=== PATIENT | female | born 1990 | race Caucasian/White ===

== ENCOUNTER 2016-10-16 19:31 | Outpatient (CLI) | payer BC, MEDICAID ==
[~2016-10-16 19:31] MED LIST: BAYER CHEWABLE81 MG PO; BUSPAR10 MG PO; PRENATAL COMPLE1 TAB PO
[2016-10-16 19:50] LABS: APPEARANCE HAZY (CLEAR); BACTERIA MODERATE /hpf (NONE SEEN); BILIRUBIN NEGATIVE (NEGATIVE); COLOR YELLOW (YELLOW); GLUCOSE NEGATIVE (NEGATIVE); KETONE NEGATIVE (NEGATIVE); LEUKOCYTE ESTERASE 1+ (NEGATIVE); MUCUS <1+ /lpf (NONE SEEN); NITRITE NEGATIVE (NEGATIVE); PROTEIN NEGATIVE (NEGATIVE); RED CELLS - URINE 0-5 /hpf (0-5); UROBILINOGEN NORMAL (NORMAL)
[2016-10-21 09:46] VITALS: BMI 47.9
== END 2016-10-16 20:32 | disposition home or self-care (01) ==
LOC: D.LDO 19:31
PROVIDERS: Specialist
DX: O26.893 Other specified pregnancy related conditions, third trimester (principal); Z3A.38 38 weeks gestation of pregnancy; R50.9 Fever, unspecified

== ENCOUNTER 2016-10-21 05:00 | Inpatient (IN) | payer BC, MEDICAID ==
[~2016-10-21] VITALS: Ht 156.2 cm; Wt 117.0 kg
[2016-10-21 05:36] VITALS: BP 133/78; BMI 48.0
[2016-10-21] MEDS ORDERED: MACROBID100 MG PO (06:03)
[2016-10-21 06:35] LABS: HEMATOCRIT 30.4 % (36.0-48.0); HEMOGLOBIN 9.9 g/dL (12-16); MCH 27.4 pg (26.0-34.0); MCHC 32.6 g/dL (31.0-37.0); MCV 84.2 fL (80.0-100.0); MEAN PLATELET VOLUME 9.1 fL (7.4-10.4); RBC 3.61 10x6/uL (4.00-5.40); RDW 16.6 % (11.5-14.5)
[2016-10-21 07:05] LABS: APPEARANCE HAZY (CLEAR); BACTERIA MODERATE /hpf (NONE SEEN); BILIRUBIN NEGATIVE (NEGATIVE); COLOR DK YELLOW (YELLOW); GLUCOSE NEGATIVE (NEGATIVE); KETONE SMALL mg/dL (NEGATIVE); LEUKOCYTE ESTERASE TRACE (NEGATIVE); MUCUS <1+ /lpf (NONE SEEN); NITRITE NEGATIVE (NEGATIVE); PROTEIN NEGATIVE (NEGATIVE); RED CELLS - URINE OCC /hpf (0-5); SPECIFIC GRAVITY 1.015 (1.005-1.020); UROBILINOGEN NORMAL (NORMAL); WHITE CELLS - URINE 0-5 /hpf (0-5)
--- NOTE | 2016-10-21 09:14 | NUR ---
FUNDUS FIRM BUT DEEP AT UMBILICUS WITH MINIMAL LOCIA
--- NOTE | 2016-10-21 09:14 | NUR ---
THE PATIENT HAD A SPINAL FOR HER PRCEEDURE BUT NOW REPORTS FULL SENSATION TO LOWER EXTS
[2016-10-21 09:28] VITALS: BP 133/68
--- NOTE | 2016-10-21 09:32 | NUR ---
UPON ENTRANCE TO FLOOR THE PATIENT STARTED SHAKING AND DEMEROL WAS ADMINISTERED PER ANESTHESIA ORDER
--- NOTE | 2016-10-21 09:33 | NUR ---
RECEIVED PATIENT TO ROOM 1257. SHE IS AWAKE AND ALERT. IVF INFUSING TO THE LEFT FOREARM PER ORDERS. RECOVERY NURSE ACCOMPANING HER; DEMEROL GIVEN BECAUSE SHE HAS THE JITTERS. SHE IS CURRENTLY CALM. ZOILA NEIL TALKING LOVINGLY TO HER ABOUT 'S CONDITION.
--- NOTE | 2016-10-21 09:45 | NUR ---
PATIENT SETTLED INTO HER BED. SHE DOESN'T HAVE ANY BLEEDING. F/F AT HER UMBILICUS. 75CC NOTED IN THE UROMETER, EMPTIED INTO COLLECTION BAG. ICE BAG TO HER INCISION THAT HAS A C/D/I DRESSING. DRIVER'S LICENSE REVIEWING OFFICER INITIATED AND INSTRUCTIONS GIVEN. SHE VOICES THEN DEMONSTRATED UNDERSTANDING.
[2016-10-21 09:46] VITALS: Ht 156.2 cm; Wt 117.0 kg
--- NOTE | 2016-10-21 10:15 | NUR ---
PATIENT RESTING QUIETLY WITHOUT COMPLAINTS. FUNDUS FIRM AND 1/U. NO BLEEDING. 60CC URINE WORKED DOWN THE TUBING TO THE UROMETER. FOB AND OTHER VISITORS STEPPED OUT OF THE ROOM FOR EXAM. SHE REMAINS NUMB BUT FEELS THE PRESSURE OF PALPATION. HER FUNDUS IS DEEP.
--- NOTE | 2016-10-21 11:15 | NUR ---
PATIENT'S SENSATION OF CRAMPING HAS BEGUN. Z OS MAINFRAME SYSTEMS PROGRAMMER IN USE. SHE RATES HER PAIN A 4. STILL NO LOCHIA. FUNDUS FIRM AT /U. SHE REQUESTS JELLO TO EAT AND IS INTERESTED IN REGULAR DIET SOON POSSIBLE.
--- NOTE | 2016-10-21 11:30 | NUR ---
PATIENT USED CALL LIGHT TO REQUEST THE TORADOL INJECTION WE HAD DISCUSSED FOR ADJUNCT PAIN CONTROL. IV TUBING SECURED TO THE FEFT FOREARM. THE IV INSERTION SITE IS WITHOUT S/S OF INFILTRATION OR IRRITATION. SCD'S ON AND INFLATING. DENIES OTHER NEEDS.
--- NOTE | 2016-10-21 12:00 | NUR ---
PATIENT RATED HER PAIN A 2.
--- NOTE | 2016-10-21 13:30 | NUR ---
PATIENT'S FUNDUS IS AT THE UMBIULICUS NOW. STILL WITHOUT BLEEDING. 100CC URINE OUT TO THE UROMETER SINCE 1114. SHE ENJOYED HER CLEAR LIQUID DIET AND DRANK 3 MUGS OF WATER. THERE IS NOTICIBLE BLOOD IN HER URINE AT THIS TIME WITH A FLOATING PIECE OF SEDEMENT NOTED.
--- NOTE | 2016-10-21 13:45 | NUR ---
L/D NURSE ASSESSED FUNDUS HEIGHT AND FIRMNESS. NOTED THE URINE. SHE AGREES THERE IS NO NEED TO WORRY AT THIS TIME. ICE PACK REPLACED TO THE INCISION.0
[2016-10-21 14:36] LABS: BASOPHILS 0.1 % (0.0-2.0); EOSINOPHILS 0.1 % (0-7); HEMATOCRIT 26.8 % (36.0-48.0); HEMOGLOBIN 8.9 g/dL (12-16); IMMATURE GRANULOCYTES 0.5 % (0-5); LYMPHOCYTES 11.1 % (15-50); MCH 28.3 pg (26.0-34.0); MCHC 33.2 g/dL (31.0-37.0); MCV 85.1 fL (80.0-100.0); MEAN PLATELET VOLUME 8.8 fL (7.4-10.4); MONOCYTES 6.6 % (2-11); NEUTROPHILS 81.6 % (40-80); RBC 3.15 10x6/uL (4.00-5.40); RDW 16.5 % (11.5-14.5)
--- NOTE | 2016-10-21 14:41 | NUR ---
PATIENT IS SITTING UP IN HER BED, PAIN RATED A 2. FOB HAS STEPPED OUT. OTHER RELATIVES IN THE ROOM. DRAWING TRACER IN USE. IVF INFUSING. NEW ICE BAG PLACED TO INCISION.
[2016-10-21 14:44] LABS: PLATELET COUNT 130 10x3/uL (130-400); WBC 14.2 10x3/uL (4.8-10.8)
--- NOTE | 2016-10-21 15:10 | NUR ---
PATIENT USED CALL LIGHT TO REPORT THAT HER IV TUBING WAS LEAKING. IT WAS LEAKING AT THE INTERSECTIONOF THE IVF AND TITLE INVESTIGATOR TUBING. REPLACED BOTH LINES. PATIENT STATES THAT SHE WOULD LIKE TO HAVE THE DEMEROL AGAIN WHEN AVAILABLE. HER URINE REMAINS PATENT TO THE BEDSIDE DRAINAGE. MANY FAMILY MEMBERS AT THE BEDSIDE.
--- NOTE | 2016-10-21 16:30 | NUR ---
PATIENT DENIES NEEDS. VISITING WITH FAMILY
--- NOTE | 2016-10-21 17:38 | NUR ---
PATIENT CONTINUES TO BE WITHOUT BLEEDING. HER FUNDUS IS FIRM, U/2. IT IS DEEP. SHE HAS HAD 850CC OF DARK URINE OUT TODAY. I HAVEN'T NOTED ANY OTHER SIGNS OF BLOOD IN HER CATHETER SINCE THIS MORNING. SHE ASKS ABOUT EATING. SHE HAS HYPOACTIVE BOWEL SOUNDS IN THE LOWER RIGHT QUADRANT AND THE REMAINDER OF HER ABDOMEN IS QUIET. INSTRUCTED TO KEEP WITH THE CLEAR LIQUIDS AT THIS TIME. HER IV SITE REMAINS WITHOUT S/S OF INFECTION OR INFILTRATION.
--- NOTE | 2016-10-21 18:15 | NUR ---
PATIENT VISITING WITH HER TODDLER AND . DENIES NEEDS AT THIS TIME.
[2016-10-21 19:20] VITALS: BP 113/62
--- NOTE | 2016-10-21 19:20 | NUR ---
REC'D PT SITTING UP IN BED. RESP EVEN AND UNLABORED. LUNGS CLEAR BILATERALLY. IV TO L WRIST. PITOCIN INFUSING AT 125CC/HR. NO S/S INFILTRATION NOTED TO SITE. BOWEL SOUNDS PRESENT X4. FUNDUS FIRM U/2. PEÑA CATH PRESENT DRAINING CLEAR YELLOW URINE. SCDS ON AND PUMP FUNCTIONING. FAMILY PRESENT IN ROOM. INFANT IN ROOM AT BEDSIDE. PLACED IN PT ARMS WHEN EQUIPMENT SALES SPECIALIST COMPLETE. PT INQUIRING WHEN SHE CAN EAT AND GET OUT OF BED. INFORMED WOULD CALL DR. EATON FOR ORDERS. UMM COUGHLIN
--- NOTE | 2016-10-21 19:45 | NUR ---
CALLED DR. EATON, INFORMED PT WANTING TO EAT AND GET UP OUT OF BED. ORDERED REGULAR DIET, NORCO 10/325 PO Q4 HOURS FOR PAIN, MOTRIN 600MG PO Q6 HOURS FOR BREAKTHROUGH PAIN, MAY DC PEÑA, SALINE LOC IV AND AMBULATE. UMM COUGHLIN
--- NOTE | 2016-10-21 20:45 | NUR ---
SANDWICH TRAY AND CHOCOLATE PUDDING WITH MILK PROVIDED PER PT REQUEST. UMM COUGHLIN
--- NOTE | 2016-10-21 20:56 | NUR ---
PT REQUESTING PAIN MEDICATION. MOTRIN AND NORCO ADMINISTERED. SEE E-MAR FOR DOCUMENTATION. IV TO SALINE LOC. PEÑA CATH DC'D WITH 325CC EMPTIED. PT FINISHED SANDWICH TRAY. MOTHER PRESENT IN ROOM. INSTRUCTED PT TO CALL FOR ASSISTANCE WHEN SHE NEEDS TO GET UP TO BATHROOM. CALL LIGHT IN REACH. UMM COUGHLIN
--- NOTE | 2016-10-21 22:40 | NUR ---
PT ASSISTED UP TO BATHROOM. ARIS CARE DONE. ASSISTED TO GET DRESSED. BED LINENS CHANGED. PT VOIDED 700CC CLEAR YELLOW URINE. PT AMBULATED TO NSY AND BACK TO ROOM. MOTHER PRESENT IN ROOM. UMM COUGHLIN
--- NOTE | 2016-10-22 00:58 | NUR ---
PT REQUESTED PAIN MEDICATION. SEE E-MAR FOR DOCUMENTATION. VS WNL. PT HAD VOIDED 300CC CLEAR YELLOW URINE. FRESH ICE WATER PROVIDED PER PT REQUEST. UMM COUGHLIN
[2016-10-22 01:00] VITALS: BP 121/69
--- NOTE | 2016-10-22 02:28 | NUR ---
BABY TO ROOM VIA OPEN CRIB CART PER THIS RN, BANDS CHECKED, PT REQUESTS MOTRIN AT 3AM WHEN DUE, INFORMED PT THAT I WILL CHECK ON IT AND WILL ADM WHEN DUE, PT VERBALIZES UNDERSTANDING, DENIES NEEDS AT THIS TIME, PT PROVIDED WITH NSY AND WS EXT NUMBERS, FAMILY MEMBER AT BEDSIDE
--- NOTE | 2016-10-22 03:10 | NUR ---
PT BABY, ADM MOTRIN PO PER MD ORDERS FOR CRAMPING, SEE EMAR, WITH FRESH H20, PT DENIES FURTHER NEEDS, FAMILY AT BEDSIDE
[2016-10-22 04:15] VITALS: BP 128/62
--- NOTE | 2016-10-22 04:15 | NUR ---
LATE ENTRY: VS OBTAINED
--- NOTE | 2016-10-22 04:15 | NUR ---
PT CALLS MACHINE TOOL ELECTRICIAN, BABY TO NSY VIA OPEN CRIB CART, REPORTS GETTING READY TO GET UP TO VOID, INFORMED PT THAT I WILL COME BACK AND EMPTY THE [place] HAT, PT VERBALIZES UNDERSTANDING, DENIES NEEDS AT THIS TIME, PT'S MOM AT BEDSIDE
--- NOTE | 2016-10-22 04:27 | NUR ---
PT BACK IN BED, SCD'S PLACED BACK ON PER PT, SCD'S WORKING PROPERLY, EMPTIED 1000 MLS OF YELLOW URINE FROM HAT, PT STATES "I'M JUST GOING TO STAY UP BECAUSE MY PAIN MEDICINE IS DUE AT 5", PT DENIES FURTHER NEEDS
--- NOTE | 2016-10-22 05:02 | NUR ---
PT AWAKE, ADM NORCO PO PER MD ORDERS, SEE EMAR, PT DENIES FURTHER NEEDS, LIGHTS OFF, PT'S MOM AT BEDSIDE
--- NOTE | 2016-10-22 05:50 | NUR ---
PT RESTING WITH EYES CLOSED, RESP QUIET, NO DISTRESS NOTED, LEFT UNDISTURBED AT THIS TIME, PT'S MOM ASLEEP ON COUCH
--- NOTE | 2016-10-22 06:43 | NUR ---
SHIFT REPORT TO YOSI ROLAND RN
[2016-10-22 07:10] LABS: BASOPHILS 0.1 % (0.0-2.0); EOSINOPHILS 0.3 % (0-7); HEMATOCRIT 26.3 % (36.0-48.0); HEMOGLOBIN 8.6 g/dL (12-16); IMMATURE GRANULOCYTES 0.8 % (0-5); LYMPHOCYTES 20.3 % (15-50); MCH 27.8 pg (26.0-34.0); MCHC 32.7 g/dL (31.0-37.0); MCV 85.1 fL (80.0-100.0); MEAN PLATELET VOLUME 8.7 fL (7.4-10.4); MONOCYTES 8.3 % (2-11); NEUTROPHILS 70.2 % (40-80); PLATELET COUNT 127 10x3/uL (130-400); RBC 3.09 10x6/uL (4.00-5.40); RDW 16.8 % (11.5-14.5)
[2016-10-22 07:14] LABS: WBC 8.6 10x3/uL (4.8-10.8)
--- NOTE | 2016-10-22 07:23 | NUR ---
AM assessment completed as charted on flowsheet. Pt is up and walking about room rates her pain at incision site at 1-2/10, denies passing gas and states that she has not yet had a bowel movement, encouraged her to continue walking and warm fluids as tolerated, but if began to hurt from not passing gas to nofify nurse for additional interventions. She is on a regular diet at this time. Bikini incision is clean and dry with white abd bandage still in place, fundus firm at u/u with light bleeding noted to bambi pad and she denies any clots with voids. Family at bedside with in nursery at this time. Phone and call light in reach.
[2016-10-22 07:36] VITALS: BP 122/61
--- NOTE | 2016-10-22 08:09 | NUR ---
DR. EATON HERE FOR ROUNDS.
--- NOTE | 2016-10-22 08:42 | NUR ---
SITTING UP IN CHAIR AT BEDSIDE. LINENS CHANGED.
--- NOTE | 2016-10-22 09:47 | NUR ---
pain med given as charted on emar. Zoloft 25mg also started per md orders, 25mg wasted in sharps. Rhogam 300mcg given im as charted on emar--lot# [id number] exp date 04/07/2018. large cup of ice water given per pt request. family at bedside, nursery nurse bring in via crib and stays to assist with feeding.
--- NOTE | 2016-10-22 10:15 | NUR ---
Pt up to bathroom, complains of burning at incision site, reassured was expected. Also states that she has not passed gas, warm tea offered but she refuses. Offered to call Dr Johnson but she said to wait at this time and she would walk some more and see if that helped. Bowel sounds active x 4 at this time. Rates pain at 2/10 as charted on emar. Denies any other needs at this time.
--- NOTE | 2016-10-22 10:35 | NUR ---
SITTING UP IN CHAIR AT BEDSIDE. STATES PAIN RELIEF WITH RX. ASKS FOR BREAST PUMP. ADVISED NURSERY.
--- NOTE | 2016-10-22 13:51 | NUR ---
REQUESTS PAIN RX FOR INCISIONAL PAIN. SEE EMAR. SITING UP AND TALKING WITH NUMEROUS VISITORS.
--- NOTE | 2016-10-22 15:22 | NUR ---
Motrin given for pt complaint of cramps as charted on emar. She states that she has started passing gas and no longer has pain with voids. UP and walking about room with family members present. Infant in crib at bedside.
[2016-10-22 15:23] VITALS: BP 136/86
--- NOTE | 2016-10-22 19:00 | NUR ---
RECEIVED SHIFT REPORT FROM ABIGAIL MARTI RN
[2016-10-22 19:15] VITALS: BP 139/72
--- NOTE | 2016-10-22 19:15 | NUR ---
UPON ENTERING ROOM, PT IS SITTING UP ON COUCH, PT BACK TO BED FOR ASSESSMENT, SEE FLOW SHEET, VS OBTAINED, FF, ML, U/2, PT DENIES BLEEDING, BIKINI INC WITH BONG CDI WITH NO DRAINAGE NOTED, ARIS PAD OVER INC, PT INST ON KEEPING ARIS PAD OVER INC FOR COMFORT AND MOISTURE CONTROL, PT REPORTS FLATUS, NO BM AND VOIDING BY SELF WITH NO DIFFICULTY, PT RATES INC PAIN AND CRAMPING 2-3/10, REQUESTS MOTRIN AND PAIN MED WHEN DUE, INFORMED PT THAT I WILL ADM WHEN THEY ARE DUE, PT DENIES NEEDS AT THIS TIME, FOB HOLDING BABY, PT'S MOM ON COUCH, DINNER TRAY AND TRASH REMOVED
--- NOTE | 2016-10-22 20:25 | NUR ---
PT HOLDING BABY, VISITING WITH FAMILY, REQUESTED AND PROVIDED TOILET PAPER, DENIES FURTHER NEEDS AT THIS TIME
--- NOTE | 2016-10-22 21:17 | NUR ---
PT BABY, ADM MOTRIN PO PER MD ORDERS, SEE EMAR, PT DENIES FURTHER NEEDS, AMISH MCDONALD, RN IN ROOM ASSISTING PT WITH
--- NOTE | 2016-10-22 22:16 | NUR ---
PT HOLDING BABY, ADM NORCO PO PER MD ORDERS, SEE EMAR, BABY TO NSY VIA OPEN CRIB CART PER THIS RN, PT DENIES NEEDS AT THIS TIME
--- NOTE | 2016-10-23 00:04 | NUR ---
PT RESTING WITH EYES CLOSED, RESP QUIET, NO DISTRESS NOTED, LEFT UNDISTURBED AT THIS TIME
[2016-10-23 02:16] VITALS: BP 140/82
--- NOTE | 2016-10-23 02:16 | NUR ---
PT CALLS DESK, THIS RN TO ROOM, VS OBTAINED, C/O INC PAIN, ADM NORCO PO PER MD ORDERS, SEE EMAR, BABY TO NSY VIA OPEN CRIB CART, PT DENIE FURTHER NEEDS
--- NOTE | 2016-10-23 04:00 | NUR ---
PT RESTING WITH EYES CLOSED, AROUSES TO SOFT VERBAL STIMULATION, BABY TO ROOM VIA OPEN CRIB CART, BANDS CHECKED, BABY TO PT'S ARMS, PT DENIES NEEDS AT THIS TIME
--- NOTE | 2016-10-23 06:04 | NUR ---
PT RESTING WITH EYES CLOSED, RESP QUIET, NO DISTRESS NOTED, LEFT UNDISTURBED AT THIS TIME
--- NOTE | 2016-10-23 06:52 | NUR ---
PT STUCCO WORKER LIGHT, C/O INC PAIN AND CRAMPING, ADM NORCO AND MOTRIN PO PER MD ORDERS WITH FRESH H20, SEE EMAR, PT DENIES FURTHER NEEDS
--- NOTE | 2016-10-23 07:00 | NUR ---
SHIFT REPORT TO SORAIDA MICHAEL RN
[2016-10-23 08:30] VITALS: BP 126/78
--- NOTE | 2016-10-23 08:30 | NUR ---
AM ASSESSMENT COMPLETED. INCISION WITHOUT REDNESS OR SWELLING, C/D/I. PT DENIES PASSING CLOTS OR HEAVY VAG BLEEDING. PT'S FAMILY MEMBER AND YOUNG DAUGHTER IN ROOM. PT HAS BREAKFAST THAT WAS BROUGHT IN BY HER FAMILY. DENIES NEEDS AT THIS TIME. SR UP X 2, CALL LIGHT AND PHONE WITHIN REACH.
--- NOTE | 2016-10-23 10:04 | NUR ---
CALLED TO ROOM BY SPOUSE SECONDARY TO PATIENT NOTICING BLOOD ON ARIS-PAD THAT HAD BEEN COVERING INCISION. SMALL AMOUNT BRIGHT RED BLOOD NOTED ON PAD. INSPECTED INCISION, BONG INTACT, NO DRAINAGE OR BLEEDING NOTED AT SITE. NO ERRYTHEMA. INSTRUCTED PATIENT ON WASHING AND CARE OF INCISION. VERBALIZED UNDERSTANDING. UP TO SHOWER AT THIS TIME. TO NOTIFY RN IF ANY FURTHER BLEEDING NOTED. VERBALIZED UNDERSTANDING.
[2016-10-23] MEDS ORDERED: HYDROCODONE-APA1 TAB PO (11:04)
[2016-10-23] MEDS ORDERED: IBUPROFEN600 MG PO (11:04)
[2016-10-23] MEDS ORDERED: ZOLOFT50 MG PO (11:05)
[2016-10-23] MEDS ORDERED: ZOLOFT25 MG PO (11:38)
--- NOTE | 2016-10-23 11:45 | NUR ---
DISCHARGE INSTRUCTIONS EXPLAINED TO PT, AND COPIES OF D/C INSTRUCTIONS GIVEN. PT HAS ASKED IF SHE CAN HAVE REGLAN FOR BREASTMILK, DR. EATON STATES HE WANTS HER TO TRY AND ESTABLISH SUPPLY FIRST, PUMP/FEED, AND IF BY MONDAY, SHE STILL WOULD LIKE TO TRY THE REGLAN FOR HER TO CALL THE CLINIC. PT AGREES. PT NOW DRESSING INFANT FOR DISCHARGE.
--- NOTE | 2016-10-23 13:00 | NUR ---
PT TAKEN BY WHEELCHAIR TO PRIVATE CAR WITH IN CARSEAT, AND DRIVING.
[2016-10-25 03:08] LABS: RAPID PLASMA REAGIN Non Reactive (Non Reactive)
--- NOTE | 2016-11-02 12:41 | OP ---
PATIENT NAME: MICHAEL SANCHEZ MEDICAL RECORD: [id number] :89 LOCATION:[id number] ADMISSION DATE:10/21/16 SURGEON: JEFF JOHNSON MD DATE OF OPERATION: 10/21/2016 PREOPERATIVE DIAGNOSES: 1. Term intrauterine at 39 weeks. 2. History of previous section. 3. The patient desires permanent sterility. POSTOPERATIVE DIAGNOSES: 1. Term intrauterine at 39 weeks. 2. History of previous section. 3. The patient desires permanent sterility. PROCEDURE: A repeat low transverse section and bilateral tubal ligation via modified Bernie. SURGEON: Jeff Johnson MD ESTIMATED BLOOD LOSS: 1000 cc. ANESTHESIA: Spinal. INTRAVENOUS FLUIDS: Per anesthesia record. SPECIMENS: Placenta and cord for gases and sections of bilateral transected tubes. COMPLICATIONS: None apparent. FINDINGS: 1. Grossly normal appearing adnexa bilaterally. 2. Viable infant, Apgars 9 at 1 and 9 at 5. 3. Placenta delivered manually intact, 3-vessel cord noted. PROCEDURE IN DETAIL: The patient was taken to the operating room, where spinal anesthesia was achieved without difficulty. She was then prepped and draped in normal sterile fashion in the dorsal supine position. SCDs were on and functioning normally. A Quan catheter had been placed and was draining normally. At this point, a Pfannenstiel skin incision was made, extended downward to the underlying subcutaneous fat to level of the fascia, which was then nicked in the midline and excised bilaterally using the Madsen scissors. The superior and inferior aspects of the fascial incision were then grasped with Devon clamps times 2, tented upward, and sharply dissected from the underlying rectus muscle using the Bovie cautery and the Madsen scissors. The rectus muscles were then bluntly in the midline and the intraperitoneal space entered at the superior aspect of the incision using the Metzenbaum scissors. The peritoneal incision was extended using the Metzenbaum scissors bilaterally and a bladder blade was then placed into the pelvis. A low transverse incision was made and upon entering into the uterus, the incision was extended superiorly and inferiorly using the Pelosi method. At this point, the head was identified and found to be extended. A vacuum was placed on the left side of the occiput, correcting to head flexion, the infant was then delivered atraumatically. No traction was placed on the neck using the vacuum. Vacuum was removed OPERATIVE REPORT [id number] MICHAEL SANCHEZ immediately upon delivery of the head and the was delivered atraumatically. Infant was immediately bulb suctioned, cord was clamped times 2, cut. The was handed to the awaiting nursery team. At this point, cord was obtained for gases. The placenta was delivered manually intact with 3-vessel cord was noted. Uterus was exteriorized, cleared of all clots and debris and vigorously massaged until good uterine tone was noted. The bladder blade was then replaced into the pelvis and the uterine incision was repaired with 0 Vicryl in a running locked fashion times 2 with good hemostasis noted. Attention was then turned to the bilateral fallopian tubes were in the midline. A Markham clamp was used to tent up in approximately 3-4 cm section of the tube. This was then tied with 0 plain gut ties times 2 and approximately 1.5 cm section of tube was removed with good hemostasis noted bilaterally. Posterior cul-de-sac was then thoroughly irrigated and uterus was replaced into the pelvis. All surgical sites were then found to be hemostatic. The anterior cul-de-sac was then thoroughly irrigated. Counts were correct times 2 and the fascia was repaired with 0 loop PDS times 1 and the skin repaired with og. The patient tolerated the procedure well, transferred to postanesthesia recovery stable without incident. TRANSINT:[id number] Voice Confirmation ID: [id number] DOCUMENT ID: [id number] JEFF JOHNSON MD at 1240 CC: [id number] DICTATION DATE: 10/23/16712 PROJECT LEADER: 10/23/16 0746 ADM IN [facility] [address] [id number]
== END 2016-10-23 13:00 | disposition home or self-care (01) | DRG 766 ==
LOC: D.LD 05:00 → D.SDCHOLD 12:00 → D.LD 10-23 13:00
PROVIDERS: ADMIT Obstetrics & Gynecology
PROC: 10D00Z1 Extraction of Products of Conception, Low, Open Approach (ICD-10-PCS; principal; 2016-10-21 12:00)
PROC: 0UB70ZZ Excision of Bilateral Fallopian Tubes, Open Approach (ICD-10-PCS; 2016-10-21 12:00)
DX: O99.214 Obesity complicating childbirth (principal); Z3A.39 39 weeks gestation of pregnancy; Z37.0 Single live birth; O99.02 Anemia complicating childbirth; O99.344 Other mental disorders complicating childbirth; F41.8 Other specified anxiety disorders; O99.62 Diseases of the digestive system complicating childbirth; Z30.2 Encounter for sterilization; Z30.09 Encounter for other general counseling and advice on contraception

== ENCOUNTER 2016-10-23 18:16 | Emergency (ER) | payer BC, MEDICAID ==
[2016-10-21 09:46] VITALS: BMI 47.9
[~2016-10-23 18:16] MED LIST changes: +HYDROCODONE-APA1 TAB PO; +IBUPROFEN600 MG PO; +MACROBID100 MG PO; +ZOLOFT25 MG PO; +ZOLOFT50 MG PO
[2016-10-23 19:12] LABS: BASOPHILS 0.1 % (0.0-2.0); EOSINOPHILS 0.9 % (0-7); HEMATOCRIT 28.1 % (36.0-48.0); HEMOGLOBIN 8.9 g/dL (12-16); IMMATURE GRANULOCYTES 0.8 % (0-5); LYMPHOCYTES 23.8 % (15-50); MCH 27.7 pg (26.0-34.0); MCHC 31.7 g/dL (31.0-37.0); MEAN PLATELET VOLUME 8.5 fL (7.4-10.4); MONOCYTES 5.7 % (2-11); NEUTROPHILS 68.7 % (40-80); RBC 3.21 10x6/uL (4.00-5.40); RDW 16.7 % (11.5-14.5); WBC 9.1 10x3/uL (4.8-10.8)
[2016-10-23 19:14] LABS: MCV 87.5 fL (80.0-100.0); PLATELET COUNT 168 10x3/uL (130-400)
== END 2016-10-23 20:00 | disposition home or self-care (01) ==
LOC: D.ER 18:16
PROVIDERS: Family Medicine
DX: N93.9 Abnormal uterine and vaginal bleeding, unspecified (principal)

== ENCOUNTER 2017-12-28 06:55 | Day surgery (SDC) | payer BC, MEDICAID ==
[~2017-12-28] VITALS: Ht 162.6 cm; Wt 124.7 kg
--- NOTE | ~2017-12-28 | OP ---
PATIENT NAME: MICHAEL SANCHEZ MEDICAL RECORD: [id number] :89 LOCATION:[facility] ADMISSION DATE: SURGEON: SABA ACOSTA MD DATE OF OPERATION: 12/28/2017 PREOPERATIVE DIAGNOSES: 1. Right lower quadrant endometrioma. 2. Morbid obesity with BMI of 49. POSTOPERATIVE DIAGNOSES: 1. Right lower quadrant endometrioma. 2. Morbid obesity with BMI of 49. PROCEDURE: Right lower quadrant excision of 2-cm endometrioma. SURGEON: Saba Acosta MD REPORT OF PROCEDURE: The patient's abdomen was prepped and draped in sterile fashion. A skin incision was made in the most inferior aspect of the right lower quadrant. Electrocautery was used to dissect through the subcutaneous tissues and we came around a firm mass of tissue that was getting near the patient's fascia. This tissue was sent off for permanent specimen. At the time for excision, it appeared that we got the entire specimen out cleanly. We inspected the area and saw there was no sign of any active bleeding. At this point, the subcutaneous tissues were irrigated out and then infused with a total of 10 mL of 0.25% Marcaine with epinephrine. The subcutaneous tissues were reapproximated with interrupted 3-0 Vicryl and the skin was closed with running subcutaneous 5-0 Monocryl. COMPLICATIONS: None. CONDITION: Stable. ANESTHESIA: General endotracheal and local. BLOOD LOSS: Minimal. TRANSINT:[id number] Voice Confirmation ID: [id number] DOCUMENT ID: [id number] SABA ACOSTA MD at 1413 CC: [id number] DICTATION DATE: 12/28/17 1017 HEALTH PLAN SPECIALIST: 12/28/17 1202 [facility] 12/28/[address] [address]
[2017-12-28 07:27] VITALS: BP 136/79; Ht 162.6 cm; Wt 124.7 kg
[2017-12-28 07:32] LABS: BASOPHILS 0.3 % (0-2); EOSINOPHILS 0.7 % (0-7); HEMOGLOBIN 12.4 g/dL (12-16); IMMATURE GRANULOCYTES 0.6 % (0-5); LYMPHOCYTES 24.5 % (15-50); MCH 27.7 pg (26.0-34.0); MCHC 32.6 g/dL (31.0-37.0); MCV 84.8 fL (80.0-100.0); MEAN PLATELET VOLUME 8.4 fL (7.4-10.4); MONOCYTES 6.1 % (2-11); NEUTROPHILS 67.8 % (40-80); PLATELET COUNT 193 10x3/uL (130-400); RBC 4.48 10x6/uL (4.00-5.40); RDW 15.6 % (11.5-14.5); WBC 6.9 10x3/uL (4.8-10.8)
[2017-12-28 07:46] LABS: CALC OSMOLALITY 277 mosm/kg (275-300); CALCIUM 8.8 mg/dL (8.5-10.1); CHLORIDE - SERUM 105 mmol/L (98-107); CREATININE - SERUM 0.6 mg/dL (0.6-1.3); GLUCOSE 96 mg/dL (74-106); POTASSIUM - SERUM 3.7 mmol/L (3.5-5.1); SODIUM 140 mmol/L (136-145); UREA NITROGEN 11 mg/dL (7-18); eGFR NON AFRICAN AMERICAN > 90 mL/min (90-120)
[2017-12-28] MEDS ORDERED: HYDROCODONE-APA1 TAB PO (10:14)
== END 2017-12-28 11:45 | disposition home or self-care (01) ==
LOC: D.OPS 06:55
PROVIDERS: Surgery
DX: N80.8 Other endometriosis (principal); E66.01 Morbid (severe) obesity due to excess calories; Z68.42 Body mass index [BMI] 45.0-49.9, adult; Z01.812 Encounter for preprocedural laboratory examination

== ENCOUNTER 2019-03-27 14:58 | Emergency (ER) | payer MEDICAID ==
[~2019-03-27] VITALS: Ht 162.6 cm; Wt 129.5 kg
[2019-03-27 15:11] VITALS: Ht 162.6 cm; Wt 129.5 kg
[2019-03-27 15:47] LABS: BASOPHILS 0.2 % (0-2); HEMATOCRIT 35.5 % (36.0-48.0); HEMOGLOBIN 11.9 g/dL (12-16); IMMATURE GRANULOCYTES 0.4 % (0-5); LYMPHOCYTES 23.8 % (15-50); MCH 27.9 pg (26.0-34.0); MCHC 33.5 g/dL (31.0-37.0); MCV 83.3 fL (80.0-100.0); MEAN PLATELET VOLUME 8.4 fL (7.4-10.4); MONOCYTES 3.8 % (2-11); NEUTROPHILS 70.8 % (40-80); PLATELET COUNT 202 10x3/uL (130-400); RBC 4.26 10x6/uL (4.00-5.40); RDW 14.8 % (11.5-14.5); WBC 9.2 10x3/uL (4.8-10.8)
[2019-03-27 15:58] LABS: HCG SERUM NEGATIVE (NEGATIVE)
[2019-03-27 16:05] LABS: ALBUMIN 3.6 g/dL (3.4-5.0); ALKALINE PHOSPHATASE 89 U/L (46-116); ALT (SGPT) 49 U/L (10-68); BILIRUBIN - TOTAL 1.01 mg/dL (0.2-1.3); CALC OSMOLALITY 280 mosm/kg (275-300); CARBON DIOXIDE 26.8 mmol/L (21.0-32.0); CHLORIDE - SERUM 106 mmol/L (98-107); CREATININE - SERUM 0.9 mg/dL (0.6-1.3); GLUCOSE 120 mg/dL (74-106); POTASSIUM - SERUM 3.9 mmol/L (3.5-5.1); PROTEIN - SERUM 7.3 g/dL (6.4-8.2); SODIUM 141 mmol/L (136-145); UREA NITROGEN 10 mg/dL (7-18); eGFR NON AFRICAN AMERICAN 80 mL/min (90-120)
[2019-03-27 16:08] LABS: AMYLASE - SERUM 45 U/L (25-115); LIPASE 169 U/L (73-393); TROPONIN-I < 0.017 ng/mL (0.000-0.060)
[2019-03-27 16:24] LABS: APPEARANCE CLEAR (CLEAR); BILIRUBIN NEGATIVE (NEGATIVE); COLOR YELLOW (YELLOW); GLUCOSE NEGATIVE (NEGATIVE); KETONE NEGATIVE (NEGATIVE); NITRITE NEGATIVE (NEGATIVE); PROTEIN NEGATIVE (NEGATIVE); UROBILINOGEN NORMAL (NORMAL)
[2019-03-27] MEDS ORDERED: VOLTAREN75 MG PO (20:09)
[2019-03-27] MEDS ORDERED: ZOFRAN ODT4 MG/UDTAB PO (20:09)
[2019-03-27 21:00] VITALS: BP 114/63
== END 2019-03-27 20:56 | disposition home or self-care (01) ==
LOC: D.ER 14:58
PROVIDERS: Family Medicine
DX: R10.11 Right upper quadrant pain (principal); R11.0 Nausea

== ENCOUNTER 2019-03-30 07:09 | Inpatient (IN) | payer MEDICAID ==
[~2019-03-30 07:09] MED LIST changes: +VOLTAREN75 MG PO; +ZOFRAN ODT4 MG/UDTAB PO
[2019-03-30] MEDS ORDERED: ZOFRAN ODT4 MG/UDTAB PO (07:58)
[2019-03-30 08:44] VITALS: BP 129/84
[2019-03-30 08:58] LABS: BASOPHILS 0.2 % (0-2); EOSINOPHILS 0.1 % (0-7); HEMATOCRIT 36.2 % (36.0-48.0); HEMOGLOBIN 12.4 g/dL (12-16); IMMATURE GRANULOCYTES 0.4 % (0-5); LYMPHOCYTES 10.6 % (15-50); MCH 28.2 pg (26.0-34.0); MCHC 34.3 g/dL (31.0-37.0); MCV 82.3 fL (80.0-100.0); MEAN PLATELET VOLUME 8.4 fL (7.4-10.4); MONOCYTES 5.9 % (2-11); NEUTROPHILS 82.8 % (40-80); PLATELET COUNT 217 10x3/uL (130-400); RDW 14.6 % (11.5-14.5); WBC 9.1 10x3/uL (4.8-10.8)
[2019-03-30 09:16] LABS: CALC OSMOLALITY 277 mosm/kg (275-300); CALCIUM 9.8 mg/dL (8.5-10.1); CHLORIDE - SERUM 103 mmol/L (98-107); CREATININE - SERUM 0.8 mg/dL (0.6-1.3); GLUCOSE 119 mg/dL (74-106); POTASSIUM - SERUM 3.6 mmol/L (3.5-5.1); SODIUM 139 mmol/L (136-145); UREA NITROGEN 9 mg/dL (7-18); eGFR NON AFRICAN AMERICAN > 90 mL/min (90-120)
[2019-03-30 09:17] LABS: AMYLASE - SERUM 1130 U/L (25-115); LIPASE 10753 U/L (73-393)
[2019-03-30 10:00] VITALS: BP 137/80
[2019-03-30 10:13] LABS: ALBUMIN 3.9 g/dL (3.4-5.0); BILIRUBIN - DIRECT 0.53 mg/dL (0.00-0.30); BILIRUBIN - INDIRECT 0.97 mg/dL (0.00-1.00); BILIRUBIN - TOTAL 1.5 mg/dL (0.2-1.3); LDL-HDL RATIO 3.1 ratio (1.5-3.5); PROTEIN - SERUM 8.1 g/dL (6.4-8.2)
[2019-03-30 12:36] VITALS: BMI 49.0
--- NOTE | 2019-03-30 19:30 | NUR ---
PATIENT RESTING IN BED WITH NO S/S OF DISTRESS. PATIENT REQUESTED PAIN AND NAUSEA MEDS. VITALS WNL. PATIENT DENIES OTHER NEEDS AT THIS TIME. EXPLAINED TO THE PATIENT THAT THERE IS APROX 10 MINS UNTIL MEDS WERE AVAILABLE FOR THE NEXT DOSE. PATIENT VERBALIZED UNDERSTANDING. PATIENT DENIES OTHER NEEDS AT THIS TIME. BED IN LOWEST POSITION AND CALL LIGHT WITHIN REACH. ENCOURAGED THE PATIENT TO CALL IF SHE HAS OTHER NEEDS. WILL CONTINUE TO MONITOR.
[2019-03-30 19:49] VITALS: BP 127/73
[2019-03-31 00:20] VITALS: BP 116/73
[2019-03-31 04:00] VITALS: BP 119/68; BP 147/63
[2019-03-31 07:54] LABS: BASOPHILS 0.1 % (0-2); EOSINOPHILS 0.6 % (0-7); HEMATOCRIT 31.2 % (36.0-48.0); HEMOGLOBIN 10.4 g/dL (12-16); IMMATURE GRANULOCYTES 0.4 % (0-5); LYMPHOCYTES 22.9 % (15-50); MCH 27.7 pg (26.0-34.0); MCHC 33.3 g/dL (31.0-37.0); MCV 83.2 fL (80.0-100.0); MEAN PLATELET VOLUME 8.3 fL (7.4-10.4); MONOCYTES 7.9 % (2-11); NEUTROPHILS 68.1 % (40-80); RBC 3.75 10x6/uL (4.00-5.40); RDW 15.2 % (11.5-14.5); WBC 8.2 10x3/uL (4.8-10.8)
[2019-03-31 08:07] LABS: ALKALINE PHOSPHATASE 100 U/L (46-116); ALT (SGPT) 114 U/L (10-68); AMYLASE - SERUM 165 U/L (25-115); BILIRUBIN - TOTAL 1.06 mg/dL (0.2-1.3); CALC OSMOLALITY 275 mosm/kg (275-300); CALCIUM 8.3 mg/dL (8.5-10.1); CARBON DIOXIDE 26.3 mmol/L (21.0-32.0); CHLORIDE - SERUM 104 mmol/L (98-107); CREATININE - SERUM 0.7 mg/dL (0.6-1.3); GLUCOSE 97 mg/dL (74-106); LIPASE 1081 U/L (73-393); MAGNESIUM - SERUM 1.8 mg/dL (1.8-2.4); POTASSIUM - SERUM 3.3 mmol/L (3.5-5.1); PROTEIN - SERUM 6.5 g/dL (6.4-8.2); SODIUM 139 mmol/L (136-145); UREA NITROGEN 6 mg/dL (7-18); eGFR NON AFRICAN AMERICAN > 90 mL/min (90-120)
[2019-03-31 08:15] LABS: PLATELET COUNT 160 10x3/uL (130-400)
[2019-03-31 08:33] VITALS: BP 125/62
--- NOTE | 2019-03-31 10:30 | NUR ---
PT LYING IN BED AAO X4 TO PERSON, PLACE, TIME, AND SITUATION. DENIES NEEDS AT THIS TIME. CL IN REACH. SIDE RAILS UP X3 FOR PT SAFETY. BED IN LOWEST POSITION.
--- NOTE | 2019-03-31 18:14 | NUR ---
PT UP IN CHAIR. DENIES NEEDS AT THIS TIME. CL IN REACH.
--- NOTE | 2019-03-31 19:04 | NUR ---
RESPONDED TO PATIENT'S CALL LIGHT. PATIENT RESTING IN BED WITH NO S/S OF DISTRESS. FAMILY AT BEDSIDE. PATIENT STATED HER PAIN MEDICATION IS NOT WORKING AND SHE WOULD LIKE THE DOCTOR TO BE CALLED FOR ADDITIONAL PAIN MEDICATION TO BE GIVEN FOR 6/10 PAIN. I TOLD THE PATIENT THAT I WOULD CALL AND SPEAK WITH THE GUN NUMBERER DOCTOR.
--- NOTE | 2019-03-31 19:13 | NUR ---
PAGED DR. IGLESIAS IN REGARDS TO PATIENT'S PAIN MEDICATION REQUEST
--- NOTE | 2019-03-31 19:16 | NUR ---
SPOKE WITH DR. IGLESIAS IN REGARDS TO THE PATIENT'S PAIN MEDICATION. DR. IGLESIAS DID NOT ORDER ADDITIONAL PAIN MEDICATION. WILL DISCUSS WITH THE PATIENT.
[2019-03-31 20:00] VITALS: BP 132/77
[2019-04-01] VITALS: BP 122/61
[2019-04-01 04:00] VITALS: BP 128/69
[2019-04-01 07:34] LABS: BASOPHILS 0.1 % (0-2); EOSINOPHILS 0.7 % (0-7); HEMOGLOBIN 10.4 g/dL (12-16); IMMATURE GRANULOCYTES 0.4 % (0-5); LYMPHOCYTES 24.6 % (15-50); MCH 27.7 pg (26.0-34.0); MCHC 32.5 g/dL (31.0-37.0); MCV 85.1 fL (80.0-100.0); MEAN PLATELET VOLUME 8.2 fL (7.4-10.4); MONOCYTES 9.7 % (2-11); NEUTROPHILS 64.5 % (40-80); PLATELET COUNT 165 10x3/uL (130-400); RBC 3.76 10x6/uL (4.00-5.40); RDW 15.2 % (11.5-14.5); WBC 6.8 10x3/uL (4.8-10.8)
[2019-04-01 07:48] LABS: APTT 31.1 SECONDS (22.8-39.4); INR 1.12 (0.85-1.17); PROTIME 13.9 SECONDS (11.6-15.0)
[2019-04-01 08:23] LABS: ALBUMIN 3.2 g/dL (3.4-5.0); ALKALINE PHOSPHATASE 92 U/L (46-116); ALT (SGPT) 87 U/L (10-68); AMYLASE - SERUM 53 U/L (25-115); CALC OSMOLALITY 279 mosm/kg (275-300); CALCIUM 8.7 mg/dL (8.5-10.1); CARBON DIOXIDE 25.4 mmol/L (21.0-32.0); CHLORIDE - SERUM 105 mmol/L (98-107); CREATININE - SERUM 0.6 mg/dL (0.6-1.3); GLUCOSE 94 mg/dL (74-106); LIPASE 431 U/L (73-393); POTASSIUM - SERUM 3.3 mmol/L (3.5-5.1); PROTEIN - SERUM 6.9 g/dL (6.4-8.2); SODIUM 142 mmol/L (136-145); UREA NITROGEN 5 mg/dL (7-18); eGFR NON AFRICAN AMERICAN > 90 mL/min (90-120)
--- NOTE | 2019-04-01 08:51 | MORECARE ---
CASE MANAGEMENT DISCHARGE SUMMARY PATIENT: MICHAEL ANDRES UNIT: [id number] ADM DATE: 03/30/19 AGE: 28 : [birth year] SEX: F ROOM/BED: D.1206 AUTHOR: ARA CAMARGO PHYSICIAN: REFERRING PHYSICIAN: AALIYAH LAROSE MD DATE OF SERVICE: 04/01/19 Discharge Plan Patient Name: MICHAEL ANDRES Facility: [facility]:[place] : 1990 Planned Disposition: Home Anticipated Discharge Date: Discharge Date: Expected LOS: Initial Reviewer: FARA Initial Review Date: 04/01/2019 Generated: 04/01/19 9:51 am DCPIA - Discharge Planning Initial Assessment Updated by FARA: Karolina Rodriguez on 04/01/19 8:51 am * Is the patient Alert and Oriented? Yes * How many steps to enter\exit or inside your home? * PCP LACHELLE * [facility] * Preadmission Environment Home with Family * ADLs Independent * List name and contact numbers for known caregivers / representatives who currently or will assist patient after discharge: TRAY SPOUSE [phone] * Verbal permission to speak to the caregivers and representatives has been obtained from the patient. Yes * Community resources currently utilized None * Additional services required to return to the preadmission environment? No * Can the patient safely return to the preadmission environment? Yes * Has this patient been hospitalized within the prior 30 days at any hospital? No Patient Name: MICHAEL ANDRES Page [id number] at 0851 All edits/amendments must be made on the electronic document DICTATION DATE: 04/01/19850 NEW MEDIA STRATEGIST: APURVA 04/01/19850 RPT#: [id number] DC DATE: STATUS: ADM IN [facility] [address] [place] [address] END OF REPORT
--- NOTE | 2019-04-01 08:59 | MORECARE ---
CASE MANAGEMENT DISCHARGE SUMMARY PATIENT: MICHAEL ANDRES UNIT: [id number] ADM DATE: 03/30/19 AGE: 28 : [birth year] SEX: F ROOM/BED: D.1206 AUTHOR: RAMAN,DOC PHYSICIAN: REFERRING PHYSICIAN: AALIYAH LAROSE MD DATE OF SERVICE: 04/01/19 Discharge Plan Patient Name: MICHAEL ANDRES Facility: [facility]:[place] : 1990 Planned Disposition: Home Anticipated Discharge Date: Discharge Date: Expected LOS: Initial Reviewer: [email or web address] Initial Review Date: 04/01/2019 Generated: 04/01/19 9:59 am Comments DCP- Discharge Planning Updated by [email or web address]: Karolina Rodriguez on 04/01/19 7:[address] Patient Name: MICHAEL ANDRES Admission Status: ER Accout number: [id number] Admission Date: 03-30-2019 : 1990 Admission Diagnosis: Attending: LACHELLE, Current LOS: 2 Anticipated DC Date: Planned Disposition: Home Primary Insurance: [employer] [facility] Discharge Planning Comments: CM MEET WITH PT AFTER GETTING VERBAL CONSENT TO CONTINUE WITH INITAL ASSESSMENT AND DISCHARGE NEEDS. CM EDUCATED ON ROLE OF CM AND THE SERVICES AVALIABLE SUCH HH, REHAB AND DME SERVICES. PT LIVES AT HOME WITH SPOUSE. DENIES ANY CM NEEDS. FEELS LIKE HOME IS A SAFE DC PLAN. CM WILL CONTINUE TO FOLLOW Alignment Mechanic: Karolina Rodriguez DCPIA - Discharge Planning Initial Assessment Updated by [email or web address]: Karolina Rodriguez on 04/01/19 8:51 am * Is the patient Alert and Oriented? Yes * How many steps to enter\exit or inside your home? * PCP LACHELLE * [facility] [address] * Preadmission Environment Home with Family * ADLs Independent * List name and contact numbers for known caregivers / representatives who currently or will assist patient after discharge: TRAY SPOUSE [phone] * Verbal permission to speak to the caregivers and representatives has been obtained from the patient. Yes * Community resources currently utilized None * Additional services required to return to the preadmission environment? No * Can the patient safely return to the preadmission environment? Yes * Has this patient been hospitalized within the prior 30 days at any hospital? No Last DP export: 04/01/19 7:51 a Patient Name: MICHAEL ANDRES Page 72719 at 0859 All edits/amendments must be made on the electronic document DICTATION DATE: 04/01/19857 POLISHER IMPLANT: APURVA 04/01/19857 RPT#: [id number] DC DATE: STATUS: ADM IN [facility] [address] [place] [address] END OF REPORT
[2019-04-01] MEDS ORDERED: HYDROCODON-ACE1 EAC7 PO (11:45)
[2019-04-01] MEDS ORDERED: LEVOFLOXACIN500 MG PO (11:46)
[2019-04-01 13:04] VITALS: BP 134/75
[2019-04-01 14:02] VITALS: BMI 48.9
[2019-04-01 18:37] VITALS: BP 140/65
[2019-04-01 22:14] VITALS: BP 126/61
[2019-04-02 00:54] VITALS: BP 141/80
[2019-04-02 05:25] VITALS: BP 139/77
--- NOTE | 2019-04-02 06:05 | NUR ---
PATIENT RESTING IN BED AND DENIES NEEDS AT THIS TIME. BED IN LOWEST POSITION AND CALL LIGHT WITHIN REACH. ENCOURAGED THE PATIENT TO CALL IF SHE HAS NEEDS. WILL CONTINUE TO MONITOR.
[2019-04-02 06:52] LABS: BASOPHILS 0 % (0-2); EOSINOPHILS 0 % (0-7); HEMATOCRIT 30.9 % (36.0-48.0); HEMOGLOBIN 10.4 g/dL (12-16); IMMATURE GRANULOCYTES 0.3 % (0-5); LYMPHOCYTES 13.9 % (15-50); MCH 28.3 pg (26.0-34.0); MCHC 33.7 g/dL (31.0-37.0); MEAN PLATELET VOLUME 8.6 fL (7.4-10.4); MONOCYTES 8.1 % (2-11); NEUTROPHILS 77.7 % (40-80); PLATELET COUNT 185 10x3/uL (130-400); RBC 3.68 10x6/uL (4.00-5.40); RDW 14.7 % (11.5-14.5)
[2019-04-02 07:06] LABS: WBC 8.7 10x3/uL (4.8-10.8)
[2019-04-02 07:16] LABS: ALBUMIN 3.1 g/dL (3.4-5.0); ALKALINE PHOSPHATASE 138 U/L (46-116); BILIRUBIN - TOTAL 2.11 mg/dL (0.2-1.3); CALCIUM 8.9 mg/dL (8.5-10.1); CARBON DIOXIDE 24.1 mmol/L (21.0-32.0); CHLORIDE - SERUM 107 mmol/L (98-107); CREATININE - SERUM 0.7 mg/dL (0.6-1.3); MAGNESIUM - SERUM 2.1 mg/dL (1.8-2.4); PROTEIN - SERUM 6.8 g/dL (6.4-8.2); SODIUM 142 mmol/L (136-145); UREA NITROGEN 5 mg/dL (7-18); eGFR NON AFRICAN AMERICAN > 90 mL/min (90-120)
[2019-04-02 07:20] LABS: ALT (SGPT) 317 U/L (10-68); CALC OSMOLALITY 282 mosm/kg (275-300); GLUCOSE 148 mg/dL (74-106)
[2019-04-02 07:47] LABS: LIPASE 14294 U/L (73-393)
[2019-04-02 08:00] VITALS: BP 119/65
[2019-04-02 12:31] VITALS: BP 122/73
[2019-04-02 18:25] VITALS: BP 117/65
[2019-04-02 18:33] LABS: BASOPHILS 0.3 % (0-2); EOSINOPHILS 0.3 % (0-7); HEMATOCRIT 30.7 % (36.0-48.0); HEMOGLOBIN 10.2 g/dL (12-16); IMMATURE GRANULOCYTES 0.3 % (0-5); LYMPHOCYTES 24.4 % (15-50); MCHC 33.2 g/dL (31.0-37.0); MCV 84.3 fL (80.0-100.0); MEAN PLATELET VOLUME 8.4 fL (7.4-10.4); MONOCYTES 8.7 % (2-11); PLATELET COUNT 162 10x3/uL (130-400); RBC 3.64 10x6/uL (4.00-5.40); RDW 14.8 % (11.5-14.5); WBC 7.7 10x3/uL (4.8-10.8)
[2019-04-02 18:58] LABS: APTT 24.1 SECONDS (22.8-39.4); INR 1.14 (0.85-1.17); PROTIME 14.1 SECONDS (11.6-15.0)
--- NOTE | 2019-04-02 19:05 | NUR ---
REPORT RECEIVED, CARE ASSUMED. PT IS RESTING IN BED WATCHING TV AT THIS TIME. FAMILY AT BEDSIDE. SHIFT ASSESSMENT COMPLETED, SEE FLOWSHEET FOR DETAILS. PT DENIES NEEDS AT THIS TIME. NO SIGNS OF ACUTE DISTRESS. WILL CONTINUE TO MONITOR.
[2019-04-02 19:06] LABS: ALKALINE PHOSPHATASE 132 U/L (46-116); ALT (SGPT) 372 U/L (10-68); BILIRUBIN - TOTAL 2.53 mg/dL (0.2-1.3); CALC OSMOLALITY 282 mosm/kg (275-300); CALCIUM 8.7 mg/dL (8.5-10.1); CHLORIDE - SERUM 108 mmol/L (98-107); CREATININE - SERUM 0.7 mg/dL (0.6-1.3); GLUCOSE 130 mg/dL (74-106); POTASSIUM - SERUM 3.6 mmol/L (3.5-5.1); PROTEIN - SERUM 6.6 g/dL (6.4-8.2); SODIUM 142 mmol/L (136-145); UREA NITROGEN 6 mg/dL (7-18); eGFR NON AFRICAN AMERICAN > 90 mL/min (90-120)
[2019-04-02 19:26] LABS: APPEARANCE CLEAR (CLEAR); BILIRUBIN 1+ (NEGATIVE); COLOR DK YELLOW (YELLOW); GLUCOSE NEGATIVE (NEGATIVE); KETONE NEGATIVE (NEGATIVE); NITRITE NEGATIVE (NEGATIVE); PROTEIN NEGATIVE (NEGATIVE)
[2019-04-02 19:37] LABS: D-DIMER-QUANTITATIVE 2.19 ug/mLFEU (0.20-0.54)
[2019-04-02 20:00] VITALS: BP 128/67
[2019-04-03] VITALS: BP 118/76
[2019-04-03 04:00] VITALS: BP 124/63
[2019-04-03 07:27] LABS: BASOPHILS 0.2 % (0-2); EOSINOPHILS 0.9 % (0-7); HEMATOCRIT 30.8 % (36.0-48.0); IMMATURE GRANULOCYTES 0.5 % (0-5); LYMPHOCYTES 34.5 % (15-50); MCH 27.3 pg (26.0-34.0); MCHC 32.5 g/dL (31.0-37.0); MCV 84.2 fL (80.0-100.0); MEAN PLATELET VOLUME 8.3 fL (7.4-10.4); MONOCYTES 9.4 % (2-11); NEUTROPHILS 54.5 % (40-80); PLATELET COUNT 167 10x3/uL (130-400); RBC 3.66 10x6/uL (4.00-5.40); RDW 15.2 % (11.5-14.5); WBC 6.5 10x3/uL (4.8-10.8)
[2019-04-03 07:57] LABS: ALBUMIN 2.9 g/dL (3.4-5.0); ALKALINE PHOSPHATASE 145 U/L (46-116); ALT (SGPT) 337 U/L (10-68); BILIRUBIN - DIRECT 1.79 mg/dL (0.00-0.30); BILIRUBIN - TOTAL 2.69 mg/dL (0.2-1.3); CALC OSMOLALITY 278 mosm/kg (275-300); CALCIUM 8.3 mg/dL (8.5-10.1); CARBON DIOXIDE 24.9 mmol/L (21.0-32.0); CHLORIDE - SERUM 104 mmol/L (98-107); CREATININE - SERUM 0.6 mg/dL (0.6-1.3); GLUCOSE 91 mg/dL (74-106); MAGNESIUM - SERUM 1.8 mg/dL (1.8-2.4); POTASSIUM - SERUM 3.3 mmol/L (3.5-5.1); PROTEIN - SERUM 6.5 g/dL (6.4-8.2); SODIUM 141 mmol/L (136-145); UREA NITROGEN 6 mg/dL (7-18); eGFR NON AFRICAN AMERICAN > 90 mL/min (90-120)
--- NOTE | 2019-04-03 08:00 | NUR ---
PATIENT IS ALERT/ORIENT. GETTING UP OF BED ABLIB. TO BATHROOM. PATIENTS MOTHER IN ROOM AT BEDSIDE
[2019-04-03 08:23] LABS: LIPASE 3040 U/L (73-393)
[2019-04-03 08:30] VITALS: BP 142/78
[2019-04-03 12:18] VITALS: BP 106/56
--- NOTE | 2019-04-03 13:00 | NUR ---
DR IGLESIAS IN ROOM. TALKING WITH PATIENT. DIET ADVANCED
--- NOTE | 2019-04-03 18:34 | NUR ---
I have reviewed this patient and I concur with the Shift Assessment completed by the Licensed Practical Nurse today this shift.
[2019-04-03 20:00] VITALS: BP 130/69
[2019-04-04] VITALS: BP 139/84
[2019-04-04 04:00] VITALS: BP 139/77
[2019-04-04 06:04] LABS: BASOPHILS 0.2 % (0-2); EOSINOPHILS 1.6 % (0-7); HEMATOCRIT 31.2 % (36.0-48.0); HEMOGLOBIN 9.9 g/dL (12-16); IMMATURE GRANULOCYTES 0.6 % (0-5); LYMPHOCYTES 30.6 % (15-50); MCHC 31.7 g/dL (31.0-37.0); MCV 85.2 fL (80.0-100.0); MEAN PLATELET VOLUME 8.3 fL (7.4-10.4); MONOCYTES 6.6 % (2-11); NEUTROPHILS 60.4 % (40-80); PLATELET COUNT 179 10x3/uL (130-400); RBC 3.66 10x6/uL (4.00-5.40); WBC 6.4 10x3/uL (4.8-10.8)
[2019-04-04 06:25] LABS: ALBUMIN 2.8 g/dL (3.4-5.0); ALKALINE PHOSPHATASE 139 U/L (46-116); BILIRUBIN - DIRECT 0.33 mg/dL (0.00-0.30); BILIRUBIN - TOTAL 0.98 mg/dL (0.2-1.3); CALCIUM 8.6 mg/dL (8.5-10.1); CARBON DIOXIDE 27.2 mmol/L (21.0-32.0); CHLORIDE - SERUM 106 mmol/L (98-107); CREATININE - SERUM 0.6 mg/dL (0.6-1.3); GLUCOSE 97 mg/dL (74-106); LIPASE 428 U/L (73-393); MAGNESIUM - SERUM 1.7 mg/dL (1.8-2.4); POTASSIUM - SERUM 3.4 mmol/L (3.5-5.1); PROTEIN - SERUM 6.2 g/dL (6.4-8.2); SODIUM 142 mmol/L (136-145); eGFR NON AFRICAN AMERICAN > 90 mL/min (90-120)
[2019-04-04 06:26] LABS: ALT (SGPT) 212 U/L (10-68); CALC OSMOLALITY 279 mosm/kg (275-300); UREA NITROGEN 4 mg/dL (7-18)
--- NOTE | 2019-04-04 07:47 | NUR ---
INITIAL ROUNDING ON THE PATIENT, SHE IS AWAKE AND TALKING TO HER MOTHER ON VIEDO CHAT, SHE REQUESTED A CUP OF ICE AND 2 APPLE JUICES, DENIES ANY OTHER NEEDS AT THIS TIME. CALL LIGHT IN REACH
[2019-04-04 08:26] VITALS: BP 136/76
[2019-04-04 12:23] VITALS: BP 136/76
[2019-04-04 16:09] VITALS: BP 124/70
--- NOTE | 2019-04-04 19:49 | NUR ---
PT SITTING ON SIDE OF BED WATCHING TV. CALL LIGHT IN REACH. DENIES NEEDS AT THIS TIME. BED IN LOW. SIDE RAILS X2. A/O X4. RESP EVEN AND UNLABORED. WCTM
[2019-04-04 20:00] VITALS: BP 145/74
--- NOTE | 2019-04-04 22:10 | NUR ---
PT SITTING UP IN BED. CALL LIGHT IN REACH. DENIES NEEDS AT THIS TIME. BED IN LOW. A/O X4. LUNGS CLEAR. BOWEL ACTIVE X4. RESP EVEN AND UNLABORED. WILL CONTINUE TO MONITOR. TAKES SELF TO AND FROM BATHROOM.
[2019-04-05 00:25] VITALS: BP 133/57
--- NOTE | 2019-04-05 02:36 | NUR ---
I have reviewed this patient and I concur with the Shift Assessment completed by the Licensed Practical Nurse today this shift.
[2019-04-05 04:25] VITALS: BP 138/50
--- NOTE | 2019-04-05 04:25 | NUR ---
EYES CLOSED. NO DISTRESS NOTED. CL IN REACH. CPOC
[2019-04-05 07:22] LABS: BASOPHILS 0.1 % (0-2); EOSINOPHILS 1.6 % (0-7); HEMATOCRIT 33.1 % (36.0-48.0); HEMOGLOBIN 10.7 g/dL (12-16); IMMATURE GRANULOCYTES 0.9 % (0-5); LYMPHOCYTES 25.9 % (15-50); MCH 27.4 pg (26.0-34.0); MCHC 32.3 g/dL (31.0-37.0); MCV 84.9 fL (80.0-100.0); MEAN PLATELET VOLUME 8.5 fL (7.4-10.4); MONOCYTES 6.6 % (2-11); NEUTROPHILS 64.9 % (40-80); PLATELET COUNT 183 10x3/uL (130-400); RDW 14.8 % (11.5-14.5)
[2019-04-05 07:23] VITALS: BP 134/70
--- NOTE | 2019-04-05 07:28 | NUR ---
PATIENT IS AWAKE, DRESSED AND READY TO BE DISCHARGED, SHE DENIES PAIN AT THIS TIME.
[2019-04-05 07:37] LABS: ALBUMIN 3.1 g/dL (3.4-5.0); ALKALINE PHOSPHATASE 128 U/L (46-116); ALT (SGPT) 164 U/L (10-68); BILIRUBIN - TOTAL 0.82 mg/dL (0.2-1.3); CARBON DIOXIDE 25.5 mmol/L (21.0-32.0); CHLORIDE - SERUM 105 mmol/L (98-107); CREATININE - SERUM 0.7 mg/dL (0.6-1.3); GLUCOSE 94 mg/dL (74-106); LIPASE 416 U/L (73-393); POTASSIUM - SERUM 3.7 mmol/L (3.5-5.1); PROTEIN - SERUM 6.9 g/dL (6.4-8.2); SODIUM 140 mmol/L (136-145); eGFR NON AFRICAN AMERICAN > 90 mL/min (90-120)
[2019-04-05 07:38] LABS: CALC OSMOLALITY 276 mosm/kg (275-300); UREA NITROGEN 6 mg/dL (7-18)
--- NOTE | 2019-04-05 10:09 | MORECARE ---
CASE MANAGEMENT DISCHARGE SUMMARY PATIENT: MICHAEL ANDRES UNIT: [id number] ADM DATE: 03/30/19 AGE: 28 : [birth year] SEX: F ROOM/BED: D.1206 AUTHOR: RAMAN,DOC PHYSICIAN: REFERRING PHYSICIAN: AALIYAH LAROSE MD DATE OF SERVICE: 04/05/19 Discharge Plan Patient Name: MICHAEL ANDRES Facility: [facility]:[place] : 1990 Planned Disposition: Home Anticipated Discharge Date: Discharge Date: Expected LOS: Initial Reviewer: [email or web address] Initial Review Date: 04/01/2019 Generated: 04/05/19 11:08 am Comments DCP- Discharge Planning Updated by [email or web address]: Cammy Green on 04/05/19 9:[address] Patient Name: MICHAEL ANDRES Encounter No: [id number] : 1990 Primary Insurance: [employer] Anticipated DC Date: Planned Disposition: Home External Planned Provider: : DCP follow-up note: Patient in agreement with discharge plan. No changes to plan. Patient to discharge home with . Case management will follow and assist as needed. Cammy Green DCP- Discharge Planning Updated by [email or web address]: Karolina Rodriguez on 04/01/19 7:[address] Patient Name: MICHAEL ANDRES Admission Status: ER Accout number: [id number] Admission Date: 03-30-2019 : 1990 Admission Diagnosis: Attending: LACHELLE, Current LOS: 2 Anticipated DC Date: Planned Disposition: Home Primary Insurance: [employer] Discharge Planning Comments: CM MEET WITH PT AFTER GETTING VERBAL CONSENT TO CONTINUE WITH INITAL ASSESSMENT AND DISCHARGE NEEDS. CM EDUCATED ON ROLE OF CM AND THE SERVICES AVALIABLE SUCH HH, REHAB AND DME SERVICES. PT LIVES AT HOME WITH SPOUSE. DENIES ANY CM NEEDS. FEELS LIKE HOME IS A SAFE DC PLAN. CM WILL CONTINUE TO FOLLOW Solar Energy Specialist: Karolina Rodriguez DCPIA - Discharge Planning Initial Assessment Updated by [email or web address]: Karolina Rodriguez on 04/01/19 8:51 am * Is the patient Alert and Oriented? Yes * How many steps to enter\exit or inside your home? * PCP LACHELLE * Pharmacy [facility] [address] * Preadmission Environment Home with Family * ADLs Independent * List name and contact numbers for known caregivers / representatives who currently or will assist patient after discharge: TRAY SPOUSE [phone] * Verbal permission to speak to the caregivers and representatives has been obtained from the patient. Yes * Community resources currently utilized None * Additional services required to return to the preadmission environment? No * Can the patient safely return to the preadmission environment? Yes * Has this patient been hospitalized within the prior 30 days at any hospital? No Last DP export: 04/01/19 7:59 a Patient Name: MICHAEL ANDRES Page [id number] at 1009 All edits/amendments must be made on the electronic document DICTATION DATE: 04/05/191007 HOME ECONOMICS TEACHER: APURVA 04/05/19 100 RPT#: [id number] DC DATE: STATUS: ADM IN [facility] [address] [place] [address] END OF REPORT
--- NOTE | 2019-04-05 11:37 | MORECARE ---
CASE MANAGEMENT DISCHARGE SUMMARY PATIENT: MICHAEL ANDRSE UNIT: [id number] ADM DATE: 03/30/19 AGE: 28 : [birth year] SEX: F ROOM/BED: D.1206 AUTHOR: RAMAN,DOC PHYSICIAN: REFERRING PHYSICIAN: AALIYAH LAROSE MD DATE OF SERVICE: 04/05/19 Discharge Plan Patient Name: MICHAEL ANDRES Facility: [facility]:[place] : 1990 Planned Disposition: Home Anticipated Discharge Date: 04/05/19 Discharge Date: 04/05/2019 Expected LOS: 6 Initial Reviewer: [email or web address] Initial Review Date: 04/01/2019 Generated: 04/05/19 12:37 pm Comments DCP- Discharge Planning Updated by [email or web address]: Cammy Green on 04/05/19 9:[address] Patient Name: MICHAEL ANDRES Encounter No: [id number] : 1990 Primary Insurance: [employer] Anticipated DC Date: Planned Disposition: Home External Planned Provider: : DCP follow-up note: Patient in agreement with discharge plan. No changes to plan. Patient to discharge home with . Case management will follow and assist as needed. Cammy Green DCP- Discharge Planning Updated by [email or web address]: Karolina Rodriguez on 04/01/19 7:[address] Patient Name: MICHAEL ANDRES Admission Status: ER Accout number: [id number] Admission Date: 03-30-2019 : 1990 Admission Diagnosis: Attending: LACHELLE, Current LOS: 2 Anticipated DC Date: Planned Disposition: Home Primary Insurance: [employer] Discharge Planning Comments: CM MEET WITH PT AFTER GETTING VERBAL CONSENT TO CONTINUE WITH INITAL ASSESSMENT AND DISCHARGE NEEDS. CM EDUCATED ON ROLE OF CM AND THE SERVICES AVALIABLE SUCH HH, REHAB AND DME SERVICES. PT LIVES AT HOME WITH SPOUSE. DENIES ANY CM NEEDS. FEELS LIKE HOME IS A SAFE DC PLAN. CM WILL CONTINUE TO FOLLOW Public Health Doctor: Karolina Rodriguez DCPIA - Discharge Planning Initial Assessment Updated by [email or web address]: Karolina Rodriguez on 04/01/19 8:51 am * Is the patient Alert and Oriented? Yes * How many steps to enter\exit or inside your home? * PCP LACHELLE * Pharmacy [facility] [address] * Preadmission Environment Home with Family * ADLs Independent * List name and contact numbers for known caregivers / representatives who currently or will assist patient after discharge: TRAY SPOUSE [phone] * Verbal permission to speak to the caregivers and representatives has been obtained from the patient. Yes * Community resources currently utilized None * Additional services required to return to the preadmission environment? No * Can the patient safely return to the preadmission environment? Yes * Has this patient been hospitalized within the prior 30 days at any hospital? No Last DP export: 04/05/19 9:08 a Patient Name: MICHAEL ANDRES Page 00187 at 1137 All edits/amendments must be made on the electronic document DICTATION DATE: 04/05/19 1136 QUANTITATIVE STRATEGY ANALYST: APURVA 04/05/19 1136 RPT#: [id number] DC DATE:04/05/19 STATUS: DIS IN [facility] [address] [place] [address] END OF REPORT
--- NOTE | 2019-04-05 12:42 | MORECARE ---
CASE MANAGEMENT DISCHARGE SUMMARY PATIENT: MICHAEL ANDRES UNIT: [id number] ADM DATE: 03/30/19 AGE: 28 : [birth year] SEX: F ROOM/BED: D.1206 AUTHOR: RAMAN,DOC PHYSICIAN: REFERRING PHYSICIAN: AALIYAH LAROSE MD DATE OF SERVICE: 04/05/19 Discharge Plan Patient Name: MCIHAEL ANDRES Facility: [facility]:[place] : 1990 Planned Disposition: Home Anticipated Discharge Date: 04/05/19 Discharge Date: 04/05/2019 Expected LOS: 6 Initial Reviewer: [email or web address] Initial Review Date: 04/01/2019 Generated: 04/05/19 1:42 pm Comments DCP- Discharge Planning Updated by [email or web address]: Cammy Green on 04/05/19 9:[address] Patient Name: MICHAEL ANDRES Encounter No: [id number] : 1990 Primary Insurance: [employer] Anticipated DC Date: Planned Disposition: Home External Planned Provider: : DCP follow-up note: Patient in agreement with discharge plan. No changes to plan. Patient to discharge home with . Case management will follow and assist as needed. Cammy Green DCP- Discharge Planning Updated by [email or web address]: Karolina Rodriguez on 04/01/19 7:[address] Patient Name: MICHAEL ANDRES Admission Status: ER Accout number: [id number] Admission Date: 03-30-2019 : 1990 Admission Diagnosis: Attending: LACHELLE, Current LOS: 2 Anticipated DC Date: Planned Disposition: Home Primary Insurance: [employer] Discharge Planning Comments: CM MEET WITH PT AFTER GETTING VERBAL CONSENT TO CONTINUE WITH INITAL ASSESSMENT AND DISCHARGE NEEDS. CM EDUCATED ON ROLE OF CM AND THE SERVICES AVALIABLE SUCH HH, REHAB AND DME SERVICES. PT LIVES AT HOME WITH SPOUSE. DENIES ANY CM NEEDS. FEELS LIKE HOME IS A SAFE DC PLAN. CM WILL CONTINUE TO FOLLOW Pillar Man: Karolina Rodriguez DCPIA - Discharge Planning Initial Assessment Updated by [email or web address]: Karolina Rodriguez on 04/01/19 8:51 am * Is the patient Alert and Oriented? Yes * How many steps to enter\exit or inside your home? * PCP LACHELLE * Pharmacy [facility] [address] * Preadmission Environment Home with Family * ADLs Independent * List name and contact numbers for known caregivers / representatives who currently or will assist patient after discharge: TRAY SPOUSE [phone] * Verbal permission to speak to the caregivers and representatives has been obtained from the patient. Yes * Community resources currently utilized None * Additional services required to return to the preadmission environment? No * Can the patient safely return to the preadmission environment? Yes * Has this patient been hospitalized within the prior 30 days at any hospital? No Last DP export: 04/05/19 10:37 a Patient Name: MICHAEL ANDRES Page 33299 at 1242 All edits/amendments must be made on the electronic document DICTATION DATE: 04/05/19 1241 TRIPLE DRUM OPERATOR: APURVA 04/05/19 1241 RPT#: [id number] DC DATE:04/05/19 STATUS: DIS IN [facility] [address] [place] [address] END OF REPORT
[2019-04-08 19:07] LABS: AEROBE ID Final report (())
== END 2019-04-05 10:39 | disposition home or self-care (01) | DRG 417 ==
LOC: D.ER 07:09 → D.M3 12:03
PROVIDERS: Emergency Medicine; Internal Medicine Gastroenterology; Internal Medicine Nephrology; Surgery; ADMIT Family Medicine; ATTEND Family Medicine
PROC: 05HB33Z Insertion of Infusion Device into Right Basilic Vein, Percutaneous Approach (ICD-10-PCS; 2019-04-01)
PROC: B54MZZA Ultrasonography of Right Upper Extremity Veins, Guidance (ICD-10-PCS; 2019-04-01)
PROC: 0FT44ZZ Resection of Gallbladder, Percutaneous Endoscopic Approach (ICD-10-PCS; principal; 2019-04-01 13:00)
DX: K80.20 Calculus of gallbladder without cholecystitis without obstruction (principal); K85.10 Biliary acute pancreatitis without necrosis or infection; D64.9 Anemia, unspecified; E87.6 Hypokalemia

== ENCOUNTER → 2019-09-10 08:13 | Outpatient (CLI) | payer MEDICAID ==
[~2019-09-10 08:13] MED LIST changes: +HYDROCODON-ACE1 EAC7 PO; +LEVOFLOXACIN500 MG PO
[2019-09-10 09:02] LABS: ALBUMIN 3.6 g/dL (3.4-5.0); BILIRUBIN - DIRECT 0.18 mg/dL (0.00-0.30); BILIRUBIN - INDIRECT 0.75 mg/dL (0.00-1.00); BILIRUBIN - TOTAL 0.93 mg/dL (0.2-1.3); PROTEIN - SERUM 7.8 g/dL (6.4-8.2)
== END | disposition home or self-care (01) ==
LOC: D.US 08:13
PROVIDERS: ATTEND Internal Medicine Gastroenterology
DX: K76.0 Fatty (change of) liver, not elsewhere classified (principal)